=== PATIENT | male | born 1995 | race Caucasian/White ===

== ENCOUNTER 2019-06-19 14:01 | Inpatient (IN) | payer BC ==
[~2019-06-19] VITALS: Ht 170.2 cm; Wt 74.8 kg
--- NOTE | 2019-06-19 14:10 | NUR ---
Pt BIB [facility], reports pt was drinking ETOH last night and today, Hx of Sz's, had 3 SZ today, Pt may have hurt left shoulder; started IV 20g right hand; Blood glucose = 161. Pt A&Ox1, c/o left shoulder pain, distal PMS intact. No other complaints, no distress noted, but pt seems lethargics still.
[2019-06-19] MEDS ORDERED: LEVETIRACETAM IV 500 MG in IV DEXTROSE 5% 100 ML IV ONE (14:30)
[2019-06-19] MEDS ORDERED: LORAZEPAM 2 MG/1 ML VIAL IV ONE ×2 (14:30→14:45)
[2019-06-19] MEDS ORDERED: LORAZEPAM 2 MG/1 ML VIAL ONE (14:30)
[2019-06-19] MEDS ORDERED: HYDROCODONE/APAP 5-325MG TABLET PO ONE ×2 (14:30→17:00)
[2019-06-19] MEDS ORDERED: IV NORMAL SALINE 1000 ML BAG IV ONE (14:30)
[2019-06-19 14:35] LABS: BASOPHILS # (AUTO) 0.1 K/uL (0.0-8.0); BASOPHILS % (AUTO) 0.3 % (0.0-2.0); EOSINOPHILS # (AUTO) 0.1 K/uL (0.0-0.7); EOSINOPHILS % (AUTO) 0.5 % (0.0-7.0); HEMATOCRIT 48.9 % (36.7-47.1); HEMOGLOBIN 16.2 g/dL (12.5-16.3); LYMPHOCYTES # (AUTO) 0.8 K/uL (20.0-40.0); LYMPHOCYTES % (AUTO) 4.4 % (20.5-51.5); MEAN CORPUSCULAR HEMOGLOBIN 29.1 uug (23.8-33.4); MEAN CORPUSCULAR HGB CONC 33 g/dL (32.5-36.3); MEAN CORPUSCULAR VOLUME 87.7 fL (73.0-96.2); MONOCYTES # (AUTO) 0.8 K/uL (2.0-10.0); MONOCYTES % (AUTO) 4.4 % (0.0-11.0); NEUTROPHILS % (AUTO) 90.4 % (38.5-71.5); PLATELET COUNT (AUTO) 283 K/uL (152-348); RED BLOOD CELL COUNT(AUTO) 5.57 MIL/uL (4.06-5.63); WHITE BLOOD COUNT (AUTO) 17.7 K/uL (3.6-10.2)
[2019-06-19 14:43] LABS: CARBON DIOXIDE 18 mmol/L (21-32); CHLORIDE 104 mmol/L (98-107); CREATININE 1.4 mg/dL (0.6-1.3); GLUCOSE 238 mg/dL (74-106); POTASSIUM 4.4 mmol/L (3.5-5.1); UREA NITROGEN, BLOOD 13 mg/dL (7-18)
[2019-06-19] MEDS ORDERED: PHENYTOIN SODIUM IV 1,000 MG in IV NORMAL SALINE 100 ML IV ONE (14:45)
--- NOTE | 2019-06-19 14:45 | NUR ---
Pt had tonic/clonic Sz, approx 1 minute in length, applied O2 via NRB mask, bed was padded with pillows for Sz precautions, pt's mouth suctioned. Ativan 0.5 mg IV given after Sz was over.
[2019-06-19] MEDS ORDERED: FENTANYL CITRATE 100 MCG/2 ML AMPUL ONE (14:47)
[2019-06-19 14:48] LABS: ALANINE AMINOTRANSFERASE 23 U/L (16-63); ALKALINE PHOSPHATASE 63 U/L (50-136); ASPARTATE AMINOTRANSFERASE 24 U/L (15-37); BILIRUBIN,DIRECT 0.1 mg/dL (0.0-0.2); BILIRUBIN,TOTAL 0.3 mg/dL (0.2-1.0); TOTAL PROTEIN, SERUM 7.9 g/dL (6.4-8.2)
[2019-06-19 14:54] LABS: ETHANOL < 3 MG/DL (0-0)
[2019-06-19] MEDS ORDERED: FENTANYL CITRATE 100 MCG/2 ML AMPUL IV ONE (15:00)
[2019-06-19] MEDS ORDERED: PHENYTOIN SODIUM 250 MG/5 ML VIAL IV ONE (15:04)
--- NOTE | 2019-06-19 15:10 | NUR ---
Reduced shoulder dislocation, shoulder immobilizer placed on pt, post reduction Xray being done.
--- NOTE | 2019-06-19 16:15 | NUR ---
Pt A&Ox4 now.
[2019-06-19] MEDS ORDERED: HYDROCODONE/APAP 5-325MG TABLET ONE (18:06)
[2019-06-19] MEDS ORDERED: LORAZEPAM 2 MG/1 ML VIAL IV PRN (19:00)
[2019-06-19] MEDS ORDERED: Z GUARD REMEDY PASTE 57 GM TUBE TOP PRN (19:00)
[2019-06-19] MEDS ORDERED: ONDANSETRON 4 MG/2 ML VIAL IV PRN (19:00)
[2019-06-19] MEDS ORDERED: MAGNESIUM HYDROXIDE 30 ML LIQUID UDC PO PRN (19:00)
[2019-06-19] MEDS ORDERED: ACETAMINOPHEN 325 MG TABLET PO PRN (19:00)
[2019-06-19] MEDS ORDERED: HYDROCODONE/APAP 5-325MG TABLET PO PRN (19:00)
[2019-06-19] MEDS ORDERED: TEMAZEPAM 15 MG CAPSULE PO PRN (19:00)
--- NOTE | 2019-06-19 19:17 | NUR ---
zulema finished 1809
--- NOTE | 2019-06-19 20:03 | NUR ---
Report given to Angela CUELLO Tele.
[2019-06-19 20:39] VITALS: BP 131/93
[2019-06-19] MEDS ORDERED: LEVETIRACETAM 500 MG TABLET PO SCH (21:00)
--- NOTE | 2019-06-19 21:30 | NUR ---
Received patient from ER. Dx: Seizures. AOx3, drowsy. Girlfriend is at bedside. No signs of acute distress noted. Complains of some discomfort to the left arm. Patient became nauseous and had an episode of vomiting. IV from ER was not good, patient complained of pain. inserted new IV on the right wrist #22. Administered Zofran. Patient oriented to unit and room. Safety measure initiated. Bed is low and locked, call light within reach. Will continue to monitor.
--- NOTE | 2019-06-19 21:30 | NUR ---
Sling to left arm, s/p reduction. Seizure precautions initiated
[2019-06-19] MEDS: IV NS 1000 ML 1,000 ML IV PRN (21:44)
[2019-06-19] MEDS: PHENYTOIN SODIUM EXTENDED 100 MG CAPSULE.SA PO SCH (22:03)
--- NOTE | 2019-06-19 23:14 | NUR ---
Administered scheduled Keppra and Dilantin. Told patient what I was going to give, but he was drowsy and nodded his head okay. After administering, he asked what I was giving again. Him and his girlfriend then said he does not have a good reaction to Keppra, he is not allergic, but gets mood changes. Endorsed to Dr. Swann and he said to d/c and that he didn't remember what his Lamictal dose was. Went to go ask and he remembers now that it is 200mg BID and I endorsed to Dr. Swann and he ordered to continue home medication. IVF running to the right wrist. Will continue to monitor.
[2019-06-20 00:31] VITALS: BP 133/88
[2019-06-20 05:21] VITALS: BP 134/93
[2019-06-20] MEDS: PHENYTOIN SODIUM EXTENDED 100 MG CAPSULE.SA PO SCH ×2 (05:45→14:10)
--- NOTE | 2019-06-20 05:48 | NUR ---
Patient slept well, no episodes of seizures noted. Still a little lethargic, but more alert. Medications given as ordered. Fluid running on the right wrist, no s/s of infection or infiltration noted. Patient has been SR on the monitor. Vitals WNL. Will endorse to next shift.
[2019-06-20 07:08] LABS: BASOPHILS % (AUTO) 0.3 % (0.0-2.0); NEUTROPHILS # (AUTO) 8.4 K/uL (1.8-8.9)
--- NOTE | 2019-06-20 07:20 | NUR ---
PATIENT IS RESTING IN BED WITH NO SEIZURES ACTIVITIES NO SOB AND NO C/O AT THIS TIME.CALL LIGHTS AND PERSONAL BELONGINGS ARE WITHIN EASY REACH MADE COMFORTABLE AND WILL CONTINUE TO OBSERVE.
[2019-06-20 07:22] LABS: MEAN CORPUSCULAR HEMOGLOBIN 29.9 uug (23.8-33.4); MEAN CORPUSCULAR HGB CONC 35 g/dL (32.5-36.3); MEAN CORPUSCULAR VOLUME 86.5 fL (73.0-96.2); MONOCYTES % (AUTO) 9.9 % (0.0-11.0); NEUTROPHILS % (AUTO) 79.8 % (38.5-71.5); PLATELET COUNT (AUTO) 213 K/uL (152-348); RED BLOOD CELL COUNT(AUTO) 4.99 MIL/uL (4.06-5.63)
[2019-06-20 07:23] LABS: HEMATOCRIT 43.2 % (36.7-47.1); HEMOGLOBIN 14.9 g/dL (12.5-16.3); WHITE BLOOD COUNT (AUTO) 10.5 K/uL (3.6-10.2)
[2019-06-20 07:30] LABS: BILIRUBIN,TOTAL 0.7 mg/dL (0.2-1.0); CREATININE 2.2 mg/dL (0.6-1.3); MAGNESIUM 2.5 mg/dL (1.8-2.4); PHOSPHOROUS 4.5 mg/dL (2.5-4.9); POTASSIUM 4.2 mmol/L (3.5-5.1); TOTAL PROTEIN, SERUM 6.8 g/dL (6.4-8.2)
[2019-06-20] MEDS: IV NS 1000 ML 1,000 ML IV PRN (07:47)
[2019-06-20 08:04] LABS: PHENYTOIN (DILANTIN) 13.8 ug/mL (10.0-20.0)
[2019-06-20] MEDS ORDERED: LAMOTRIGINE 200 MG TABLET PO SCH (09:00)
--- NOTE | 2019-06-20 10:01 | NUR ---
PATIENT SEEN AND EXAMINED BY DR ROBERTSON WITH NEW ORDERS AND NOTED.
[2019-06-20 12:03] VITALS: BP 128/87
--- NOTE | 2019-06-20 14:46 | NUR ---
DR DONAL BALDERAS HERE AND SEEN PATIENT AND THE PLAN IS THAT PATIENT WILL BE DISCHARGED TODAY AND WILL CONTINUE SAME HOME MEDICATIONS AWAITING FOR DISCHARGE ORDERS PATIENT AND HIS GIRLFRIEND IN THE ROOM AWARE OF PLAN TO DISCHARGE.
[2019-06-20 15:33] VITALS: BP 133/89
--- NOTE | 2019-06-20 15:50 | NUR ---
PATIENT DISCHARGED PICKED UP BY HIS GIRL FRIEND IN SATISFACTORY CONDITION WITH DISCHARGE INSTRUCTIONS TO FOLLOW UP WITH HIS NEUROLOGIST PRIMARY DOCTOR WITHIN THE NEXT ONE WEEK AND HE EXPRESSED UNDERSTANDING.
== END 2019-06-20 15:50 | disposition home or self-care (01) | DRG 100 ==
LOC: ER 14:01 → TELE3 18:41
PROVIDERS: ADMIT Hospitalist; ATTEND Hospitalist
PROC: 0RSKXZZ Reposition Left Shoulder Joint, External Approach (ICD-10-PCS; principal; 2019-06-19)
DX: G40.909 Epilepsy, unspecified, not intractable, without status epilepticus (principal); N17.0 Acute kidney failure with tubular necrosis; T84.218A Breakdown (mechanical) of internal fixation device of other bones, initial encounter; E86.0 Dehydration; E83.51 Hypocalcemia; D72.829 Elevated white blood cell count, unspecified; M24.412 Recurrent dislocation, left shoulder; T79.6XXA Traumatic ischemia of muscle, initial encounter; X58.XXXA Exposure to other specified factors, initial encounter
CPT/HCPCS: 36415; 70450; 73030; 83735; 84100; 85025; A4663; G0378; G0480; J1165; J2060; J2405; J3010; J3490; J7030